=== PATIENT | female | born 1995 | race Caucasian/White ===

== ENCOUNTER → 2022-01-19 07:56 | Outpatient (CLI) | payer OTHER, SELFPAY ==
[2022-01-19 09:20] LABS: Influenza A - CEPHEID Flu A NEGATIVE (NEGATIVE); Influenza B - CEPHEID Flu B NEGATIVE (NEGATIVE); Respiratory Syncytial Virus Negative (Negative)
[2022-01-19 09:23] LABS: COVID-19 CEPHEID 4-PLEX PCR Negative (Negative)
== END ==
PROVIDERS: Visit Provider Physician Assistant Medical
DX: J02.9 Acute pharyngitis, unspecified (principal)
CPT/HCPCS: 0241U; 87070

== ENCOUNTER 2022-12-08 21:01 | Emergency (ER) | payer OTHER, SELFPAY ==
[2022-12-08] VITALS (7 sets, daily range): BP systolic 112–128; BP diastolic 64–83; PULSE 97–102; RESP 14–20; TEMP 37.3; O2SAT 93–99; BMI 24.7
--- NOTE | 2022-12-08 21:15 | DI.RAD.S_ITS ---
PROCEDURE: XR CHEST 1V INDICATIONS: chest pain TECHNIQUE: One view of the chest was acquired. COMPARISON: None. FINDINGS: Surgical changes and devices: None. Lungs and pleura: Lungs are clear. No pleural effusions or pneumothorax. Mediastinum: Mediastinal contours appear normal. Heart size is normal. Bones and chest wall: No suspicious bony lesions. Overlying soft tissues appear unremarkable. IMPRESSION: No acute cardiopulmonary abnormality. Dictated by: Jose Valentino M.D. on 12/08/2022 at 22:32 Approved by: Jose Valentino M.D. on 12/08/2022 at 22:32
[2022-12-08 21:49] LABS: Add Manual Diff / Slide Review NO; Basophils Absolute Auto 100 /uL (0-100); Basophils Percent Auto 0.6 % (0-2); Eosinophils Absolute Auto 300 /uL (0-450); Eosinophils Percent Auto 3.3 % (2-4); Hematocrit 38.3 % (36-46); Hemoglobin 13.1 g/dL (12.0-16.0); Lymphocytes Absolute Auto 2600 /uL (1100-4500); Lymphocytes Percent Auto 31.3 % (25-40); Mean Corpuscular HGB Conc 34.3 % (30-36); Mean Corpuscular Hemoglobin 29.2 PG (26-34); Mean Corpuscular Volume 85.1 fL (80-100); Monocytes Absolute Auto 700 /uL (0-900); Monocytes Percent Auto 8.9 % (3-14); Neutrophils Absolute Auto 4700 /uL (1500-7000); Neutrophils Percent Auto 55.9 % (50-75); Platelet Count 279 X10^3/uL (150-400); Red Cell Distribution Width 12.6 % (11.6-14.8); White Blood Cell Count 8.4 X10^3/uL (4.5-11.0)
[2022-12-08 22:14] LABS: Alanine Aminotransferase 33 IU/L (<35); Albumin Globulin Ratio 1.2 (1.0-2.8); Alkaline Phosphatase 58 U/L (38-126); Aspartate Aminotransferase 28 IU/L (14-36); BUN Creatinine Ratio 14.8 (6-22); Bilirubin Total 0.5 mg/dL (0.2-1.3); Blood Urea Nitrogen 9 mg/dL (7-17); Calcium 10.2 mg/dL (8.4-10.2); Carbon Dioxide 21 mmol/L (22-32); Chloride 104 mmol/L (98-107); Creatine Kinase 58 U/L (30-135); Estimated Glomerular Filt Rate > 60 mL/min (>60); Globulin 4.1 g/dL (1.7-4.1); Glucose 104 mg/dL (70-100); HEMOLYSIS 43 (0-50); Lipase 88 U/L (23-300); Potassium 3.6 mmol/L (3.4-5.1); Sodium 140 mmol/L (137-145); Total Protein 9.1 g/dL (6.3-8.2)
[2022-12-08 22:25] LABS: Troponin I < 0.012 ng/mL (0.01-0.034)
--- NOTE | 2022-12-08 22:29 | ED.CHESTPAIN ---
HPI - Chest Pain General Chief Complaint: Chest Pain Stated Complaint: chest pain, unable to take deep breath Time Seen by Provider: 12/08/22 21:17 Source: patient Mode of arrival: Ambulatory Limitations: no limitations History of Present Illness HPI narrative: 27-year-old female nonsmoker presents to the emergency department with the chief complaint of chest pain and shortness of breath over the course of the day that seems to be worse with taking deep breath. She denies any recent illness. She states that it is very pinpoint relatively sharp and stabbing pain that is worse when she exhales but denies radiation of her symptoms, denies nausea or vomiting, has no exertional component. She denies any hemoptysis. No recent trauma or injury. No pain or swelling in 1 leg or the other. Related Data Previous Rx's Medication Instructions Recorded amoxicillin 500 mg-potassium 1 tab PO Q8H #30 tabs 01/19/22 clavulanate 125 mg tablet (Augmentin) Allergies Allergy/AdvReac Type Severity Reaction Status Date / Time No Known Drug Allergies Allergy Verified 01/19/22 08:18 Review of Systems Review of Systems Narrative: GENERAL: Denies chills, fatigue, malaise, fever, sweats. HEENT: Denies sinus pain, ear pain, sore throat, difficulty swallowing, dizziness. RESPIRATORY: Denies dyspnea, cough, wheezing, hemoptysis, sputum. CARDIOVASCULAR: Denies chest pain, palpitations, orthopnea, edema, GASTROINTESTINAL: Denies nausea, vomiting, abdominal pain, diarrhea, constipation, melena. : Denies dysuria, frequency, incontinence, hematuria, urinary retention. MUSCULOSKELETAL: denies weakness, joint pain, or bony pain SKIN: Denies rash, skin lesions, or other NEUROLOGIC: Denies weakness, headache, numbness, change in speech, confusion, seizures, incoordination. PSYCHIATRIC: No concerning psychosocial issues. 12 point review of systems is negative except for those stated above Patient History Social History Smoking Status: Never smoker Smoking Status: Never smoker alcohol intake frequency: a few times a week Substance Use Type: does not use Exam Narrative Exam Narrative: GENERAL: [27] year old patient appears stated age. Well-developed patient, in mild distress. HEAD: Atraumatic. Normocephalic. EYES: Pupils equal round and reactive. Extraocular motions intact. No scleral icterus. No injection or drainage. ENT: Nose without bleeding, purulent drainage. Throat without erythema, tonsillar hypertrophy or exudate. Airway patent. NECK: Trachea midline. Non tender CARDIOVASCULAR: Regular rate and rhythm without murmurs, gallops, or rubs. RESPIRATORY: Clear to auscultation. Breath sounds equal bilaterally. No wheezes, rales, or rhonchi. GASTROINTESTINAL: Abdomen soft, non-tender, nondistended. EXTREMITIES: No edema or joint tenderness. BACK: Nontender without deformity or crepitance. No flank tenderness. NEURO: AOx3. SKIN: No rash or erythema of visible areas Initial Vital Signs Initial Vital Signs: Vital Signs Temperature 99.1 F 12/08/22 21:08 Pulse Rate 102 H 12/08/22 21:08 Respiratory Rate 16 12/08/22 21:08 Blood Pressure 128/83 12/08/22 21:08 Pulse Oximetry 99 12/08/22 21:08 Oxygen Delivery Method Room Air 12/08/22 21:08 Scores HEART Score Heart Score history: Slightly Suspicious Heart Score EKG: Normal Heart Score Age: < 45 years old Heart Score risk factors: No known risk factors Heart Score troponin: < or = to normal limit Heart Score Total: 0 Course Orders Ordered: ED Orders 12/08/22 21:15 XR chest 1V Stat EKG-12 Lead Stat 12/08/22 21:36 CRP [C-Reactive Protein Quant] Stat Complete Blood Count AUTO DIFF Stat Comprehensive Metabolic Panel Stat D Dimer Stat ESR [Erythrocyte Sedimentation Rate] Stat Lipase Stat Troponin & CK Cardiac Panel Stat Discontinued Medications Aspirin (Aspirin 81 Mg Chew Tab) 324 mg PO NOW ONE Stop: 12/08/22 21:16 Last Admin: 12/08/22 22:38 Dose: Not Given Documented By: Sodium Chloride (Normal Saline 0.9%) 1,000 mls @ 1,000 mls/hr IV BOLUS ONE Stop: 12/09/22 00:17 Last Admin: 12/08/22 23:31 Dose: 1,000 mls/hr Documented By: Ketorolac Tromethamine (Ketorolac 30 Mg/Ml Vial) 15 mg IV NOW ONE Stop: 12/08/22 23:19 Last Admin: 12/08/22 23:31 Dose: 15 mg Documented By: Vital Signs Vital signs: Vital Signs - 8 hr 12/08/22 21:08 12/08/22 22:26 12/08/22 22:27 Temperature 99.1 F Pulse Rate 102 H 102 H Respiratory Rate 16 Blood Pressure 128/83 122/68 Pulse Oximetry 99 98 Oxygen Delivery Method Room Air 12/08/22 22:27 12/08/22 22:30 12/08/22 22:30 Temperature Pulse Rate 101 H 99 H Respiratory Rate Blood Pressure 117/67 Pulse Oximetry 98 98 Oxygen Delivery Method Room Air 12/08/22 23:00 12/08/22 23:00 12/08/22 23:30 Temperature Pulse Rate 97 H 101 H Respiratory Rate 20 Blood Pressure 112/70 Pulse Oximetry 99 98 Oxygen Delivery Method 12/08/22 23:30 12/08/22 23:36 12/08/22 23:36 Temperature Pulse Rate 101 H Respiratory Rate 14 Blood Pressure 114/64 124/73 Pulse Oximetry 93 Oxygen Delivery Method MDM - Chest Pain Lab Data 12/08/22 21:36 12/08/22 21:36 Labs: Lab Results 12/08/22 12/08/22 Range/Units 00:00 21:36 WBC 8.4 (4.5-11.0) X10^3/uL RBC 4.50 (4.0-5.2) X10^6/uL Hgb 13.1 (12.0-16.0) g/dL Hct 38.3 (36-46) % MCV 85.1 (80-100) fL MCH 29.2 (26-34) PG MCHC 34.3 (30-36) % RDW 12.6 (11.6-14.8) % Plt Count 279 (150-400) X10^3/uL Neut % (Auto) 55.9 (50-75) % Lymph % (Auto) 31.3 (25-40) % [place] % (Auto) 8.9 (3-14) % Eos % (Auto) 3.3 (2-4) % Baso % (Auto) 0.6 (0-2) % Neut # (Auto) 4700 (1509-1319) /uL Lymph # (Auto) 2600 (0227-4176) /uL [place] # (Auto) 700 (0-900) /uL Eos # (Auto) 300 (0-450) /uL Baso # (Auto) 100 (0-100) /uL ESR 11 (0-20) MM/HR D-Dimer < 215 (<500) ng/ml Sodium 140 (137-145) mmol/L Potassium 3.6 (3.4-5.1) mmol/L Chloride 104 (98-107) mmol/L Carbon Dioxide 21 L (22-32) mmol/L BUN 9 (7-17) mg/dL Creatinine 0.61 (0.52-1.04) mg/dL Estimated GFR > 60 (>60) mL/min BUN/Creatinine Ratio 14.8 (6-22) Glucose 104 H (70-100) mg/dL Calcium 10.2 (8.4-10.2) mg/dL Total Bilirubin 0.5 (0.2-1.3) mg/dL AST 28 (14-36) IU/L ALT 33 (<35) IU/L Alkaline Phosphatase 58 (38-126) U/L Total Creatine Kinase 46 58 (30-135) U/L Troponin I < 0.012 < 0.012 (0.01-0.034) ng/mL C-Reactive Protein 1.5 H (<1.0) mg/dL Total Protein 9.1 H (6.3-8.2) g/dL Albumin 5.0 (3.5-5.0) g/dL Globulin 4.1 (1.7-4.1) g/dL Albumin/Globulin Ratio 1.2 (1.0-2.8) Lipase 88 (23-300) U/L MDM Narrative Medical decision making narrative: [27] year old patient presents with sharp and stabbing chest pain Multiple etiologies for patient's symptoms considered including, but not limited to: [Cardiac ischemia versus pulmonary embolism versus pleurisy versus costochondritis versus pericarditis versus other] Prior Charts reviewed in our EMR Primary Historian: patient Labs reviewed and interpreted by myself: No significant abnormalities requiring specific or immediate intervention Imaging reviewed: No acute process Patient's symptoms improved over duration of stay with above-stated therapies. EKGs nonischemic, no exertional symptoms or exercise intolerance, heart score low, troponin negative x2. D-dimer below cutoff, no evidence of infiltrate. Findings and discharge diagnosis discussed with patient/family followed by verbalization of understanding Return precautions discussed with patient/family whom verbalize understanding of diagnosis and plan Discharge Plan Departure Patient Disposition: Home Clinical Impression: Atypical chest pain Instructions: DI for Atypical Chest Pain Activity Restrictions/Additional Instructions: *You have been diagnosed with [atypical chest pain ] *What to do: *Please continue to take your regular medications as directed. [ ] New medication prescriptions sent to your pharmacy: [ ] [ ] New medication written as a paper prescription [ ] No new medications given *Please follow up with your primary care provider in 2-3 days, call for an appointment. Let them know you were seen in the Emergency Department and that we ask that you be seen in follow up. We will electronically transmit a record of today's note if your PCP is in our system *If you do not have a primary care provider please contact the [facility] Resource line at [phone]. They will ask some questions about your medical history and help get you set up with a doctor in the community. *Return to Emergency Department if you should have any new, worsening or concerning symptoms, such as [fever greater than 101 F, shaking chills, worsening pain, persistent vomiting or other bothersome symptoms] Prescriptions: No Action amoxicillin-pot clavulanate [Augmentin] 500-125 mg tablet 1 tab PO Q8H Qty: 30 0RF Referrals: Miscellaneous,Doctor, MD [Primary Care Provider] - Stand Alone Forms: Patient Portal/API
[2022-12-08 22:47] LABS: C-Reactive Protein Quant 1.5 mg/dL (<1.0)
[2022-12-08 22:54] LABS: Erythrocyte Sedimentation Rate 11 MM/HR (0-20)
[2022-12-08 22:55] LABS: D Dimer < 215 ng/ml (<500)
[2022-12-08] MEDS: KETOROLAC 30 MG/ML VIAL 15 MG IV (23:31)
[2022-12-08] MEDS: SODIUM CHLORIDE 0.9% 1,000 ML 1000 ML IV (23:31)
[2022-12-09] VITALS: BP 116/70; PULSE 86; RESP 17; O2SAT 94
[2022-12-09 00:21] LABS: Creatine Kinase 46 U/L (30-135)
[2022-12-09 00:30] VITALS: BP 111/62; PULSE 92; RESP 24; O2SAT 99
[2022-12-09 00:33] LABS: Troponin I < 0.012 ng/mL (0.01-0.034)
== END 2022-12-09 00:50 | disposition home or self-care (01) ==
PROVIDERS: Emergency Provider Emergency Medicine
DX: R07.89 Other chest pain (principal); R06.02 Shortness of breath
CPT/HCPCS: 36415; 71045; 80053; 82550; 83690; 84484; 85025; 85379; 85651; 86140; 93005; 93010; 96374; 99284; J1885